=== PATIENT | male | born 1985 | race Caucasian/White ===

== ENCOUNTER 2020-07-26 09:13 | Emergency (ER) | payer SELFPAY ==
[~2020-07-26] VITALS: Ht 182.9 cm; Wt 86.4 kg
[2020-07-26 09:15] VITALS: TEMP 97.4
[2020-07-26] MEDS ORDERED: SEIZURE MED (10:00)
[2020-07-26 13:50] VITALS: BP 151/99; PULSE 78
== END 2020-07-26 13:00 | disposition home or self-care (01) ==
LOC: COL.ER 09:13
DX: R07.89 Other chest pain (principal); G40.909 Epilepsy, unspecified, not intractable, without status epilepticus; F17.210 Nicotine dependence, cigarettes, uncomplicated; Z88.5 Allergy status to narcotic agent

== ENCOUNTER 2020-08-11 13:32 | Emergency (ER) | payer SELFPAY ==
[~2020-08-11] VITALS: Ht 185.4 cm; Wt 86.4 kg
[~2020-08-11 13:32] MED LIST: SEIZURE MED
[2020-08-11 13:43] VITALS: TEMP 98.5
[2020-08-11 14:23] LABS: BASO # 0.1 (0.0-0.2); BASO % 0.6 % (0.0-2.0); EOS % 0.3 % (0-4.0); GRAN # 6.2 (1.4-6.5); GRAN % 66.4 % (42.2-75.2); HEMATOCRIT 42.9 % (42.0-52.0); HEMOGLOBIN 14.1 g/dl (13.5-18.0); LYMPH # 2.2 (1.2-3.4); LYMPH % 23.2 % (20.0-51.0); MEAN CELL VOLUME 88 fl (80.0-100.0); MEAN CORPUSCULAR HEMOGLOBIN 29 pg (27.0-31.0); MEAN CORPUSCULAR HGB CONC 33 g/dl (33.0-37.0); MEAN PLATELET VOLUME 8.8 fl (7.4-10.4); MONO # 0.9 (0.1-0.6); MONO % 9.3 % (1.7-9.3); PLATELET COUNT 281 K/mm3 (130-400); RED BLOOD COUNT 4.86 M/mm3 (4.20-5.60); REDCELL DISTRIBUTION WIDTH-CV 12.1 % (11.5-14.5)
[2020-08-11 14:33] LABS: ALANINE AMINOTRANSFERASE 26 U/L (4-49); ALBUMIN 4.4 gm/dL (3.5-5.0); ALKALINE PHOSPHATASE 87 U/L (50-136); ANION GAP 9 mmol/L (7-16); AST,SGOT 48 U/L (15-37); BILIRUBIN,TOTAL 0.5 mg/dL (0.0-1.0); BLOOD UREA NITROGEN 8 mg/dL (9-20); CALCIUM 9.3 mg/dL (8.4-10.2); CARBON DIOXIDE 26 mmol/L (22-30); CHLORIDE 106 mmol/L (98-107); CREATININE, serum 0.89 (0.66-1.25); GLUCOSE 95 mg/dL (74-106); LIPASE 51 U/L (23-300); POTASSIUM 3.7 mmol/L (3.4-5.0); SODIUM 141 mmol/L (137-145); TOTAL PROTEIN 7.1 gm/dL (6.4-8.2)
[2020-08-11 14:47] LABS: ALCOHOL(ethanol),MEDICAL < 10 mg/dL; TROPONIN-I < 0.012 ng/mL (0.000-0.035)
[2020-08-11 15:36] VITALS: BP 118/73; PULSE 68
== END 2020-08-11 15:38 | disposition home or self-care (01) ==
LOC: COL.ER 13:32
PROVIDERS: Emergency Medicine
DX: G40.909 Epilepsy, unspecified, not intractable, without status epilepticus (principal); F17.200 Nicotine dependence, unspecified, uncomplicated; Z88.6 Allergy status to analgesic agent
CPT/HCPCS: J1885

== ENCOUNTER 2020-08-16 22:22 | Emergency (ER) | payer SELFPAY ==
[~2020-08-16] VITALS: Ht 185.4 cm; Wt 86.4 kg
[2020-08-16 22:36] VITALS: TEMP 98.2
[2020-08-16 23:40] LABS: COLLECTION METHOD CLEAN CATCH
[2020-08-16 23:51] LABS: MUCOUS Present /lpf; PH 5 (5-8); SQUAMOUS EPITHELIAL 0-2 /hpf; URINE APPEARANCE Clear; URINE BACTERIA None Seen /hpf; URINE BILIRUBIN Negative (NEGATIVE); URINE BLOOD Negative (NEGATIVE); URINE COLOR Yellow; URINE GLUCOSE Negative (NEGATIVE); URINE KETONE Negative (NEGATIVE); URINE LEUKOCYTE ESTERASE Negative (NEGATIVE); URINE NITRATE Negative (NEGATIVE); URINE PROTEIN(semi-quant) Negative (NEGATIVE); URINE RBC 0-2 /hpf; URINE UROBILINOGEN Negative (NEGATIVE)
[2020-08-16 23:57] LABS: TRICYCLIC ANTIDEPRESS URINE NEGATIVE
[2020-08-16 23:58] LABS: BASO # 0.1 (0.0-0.2); BASO % 0.5 % (0.0-2.0); EOS # 0.1 (0.0-0.7); EOS % 0.8 % (0-4.0); GRAN # 6.9 (1.4-6.5); GRAN % 62.6 % (42.2-75.2); HEMATOCRIT 45.5 % (42.0-52.0); HEMOGLOBIN 14.7 g/dl (13.5-18.0); LYMPH # 3.1 (1.2-3.4); LYMPH % 28.1 % (20.0-51.0); MEAN CELL VOLUME 90 fl (80.0-100.0); MEAN CORPUSCULAR HEMOGLOBIN 29 pg (27.0-31.0); MEAN CORPUSCULAR HGB CONC 32 g/dl (33.0-37.0); MEAN PLATELET VOLUME 9.2 fl (7.4-10.4); MONO # 0.9 (0.1-0.6); MONO % 7.8 % (1.7-9.3); PLATELET COUNT 309 K/mm3 (130-400); RED BLOOD COUNT 5.06 M/mm3 (4.20-5.60); REDCELL DISTRIBUTION WIDTH-CV 12.3 % (11.5-14.5)
[2020-08-17 00:09] LABS: ALANINE AMINOTRANSFERASE 22 U/L (4-49); ALBUMIN 4.4 gm/dL (3.5-5.0); ALKALINE PHOSPHATASE 88 U/L (50-136); ANION GAP 9 mmol/L (7-16); AST,SGOT 23 U/L (15-37); BILIRUBIN,TOTAL 0.3 mg/dL (0.0-1.0); BLOOD UREA NITROGEN 10 mg/dL (9-20); CALCIUM 9.5 mg/dL (8.4-10.2); CARBON DIOXIDE 27 mmol/L (22-30); CHLORIDE 107 mmol/L (98-107); CREATININE, serum 0.79 (0.66-1.25); GLUCOSE 97 mg/dL (74-106); POTASSIUM 3.6 mmol/L (3.4-5.0); SODIUM 142 mmol/L (137-145); TOTAL PROTEIN 7.5 gm/dL (6.4-8.2)
[2020-08-17 00:11] LABS: ACETAMINOPHEN < 10 ug/mL (10-30); ALCOHOL(ethanol),MEDICAL < 10 mg/dL; SALICYLATE < 1.0 mg/dL
[2020-08-17 00:38] LABS: TSH w REFLEX 0.678 uIU/mL (0.465-4.680)
[2020-08-17 02:05] VITALS: BP 128/84; PULSE 118
== END 2020-08-17 02:05 | disposition home or self-care (01) ==
LOC: COL.ER 22:22
PROVIDERS: Nurse Practitioner Primary Care
DX: R44.0 Auditory hallucinations (principal); R44.1 Visual hallucinations; G40.909 Epilepsy, unspecified, not intractable, without status epilepticus; Z88.6 Allergy status to analgesic agent

== ENCOUNTER 2021-01-08 11:47 | Emergency (ER) | payer SELFPAY ==
[2021-01-08 11:55] VITALS: BP 131/83; TEMP 97.7
[2021-01-08 13:01] LABS: COLLECTION METHOD CLEAN CATCH
[2021-01-08 13:15] LABS: BASO # 0.1 (0.0-0.2); BASO % 0.6 % (0.0-2.0); EOS # 0.1 (0.0-0.7); EOS % 0.5 % (0-4.0); GRAN # 6.2 (1.4-6.5); GRAN % 63.2 % (42.2-75.2); HEMATOCRIT 46.6 % (42.0-52.0); HEMOGLOBIN 15.3 g/dl (13.5-18.0); LYMPH # 2.7 (1.2-3.4); LYMPH % 27.4 % (20.0-51.0); MEAN CELL VOLUME 88 fl (80.0-100.0); MEAN CORPUSCULAR HEMOGLOBIN 29 pg (27.0-31.0); MEAN CORPUSCULAR HGB CONC 33 g/dl (33.0-37.0); MEAN PLATELET VOLUME 9.2 fl (7.4-10.4); MONO # 0.8 (0.1-0.6); MONO % 8.1 % (1.7-9.3); PLATELET COUNT 308 K/mm3 (130-400); RED BLOOD COUNT 5.27 M/mm3 (4.20-5.60); REDCELL DISTRIBUTION WIDTH-CV 12.6 % (11.5-14.5)
[2021-01-08 13:21] LABS: TRICYCLIC ANTIDEPRESS URINE NEGATIVE
[2021-01-08 13:26] LABS: ALANINE AMINOTRANSFERASE 36 U/L (4-49); ALBUMIN 4.7 gm/dL (3.5-5.0); ALCOHOL(ethanol),MEDICAL < 10 mg/dL; ALKALINE PHOSPHATASE 83 U/L (50-136); ANION GAP 9 mmol/L (7-16); AST,SGOT 33 U/L (15-37); BILIRUBIN,TOTAL 0.8 mg/dL (0.0-1.0); BLOOD UREA NITROGEN 17 mg/dL (9-20); CALCIUM 9.9 mg/dL (8.4-10.2); CARBON DIOXIDE 31 mmol/L (22-30); CHLORIDE 103 mmol/L (98-107); CREATININE, serum 0.88 (0.66-1.25); GLUCOSE 87 mg/dL (74-106); POTASSIUM 4.2 mmol/L (3.4-5.0); SODIUM 142 mmol/L (137-145); TOTAL PROTEIN 7.9 gm/dL (6.4-8.2)
[2021-01-08 13:54] LABS: AMORPHOUS CRYSTAL Present /uL; MUCOUS Present /lpf; PH 6 (5-8); SQUAMOUS EPITHELIAL None Seen /hpf; URINE APPEARANCE Cloudy; URINE BACTERIA None Seen /hpf; URINE BILIRUBIN Negative (NEGATIVE); URINE BLOOD Negative (NEGATIVE); URINE CALCIUM OXALATE CRYSTAL Present /hpf; URINE COLOR Amber; URINE GLUCOSE Negative (NEGATIVE); URINE KETONE 1+ (NEGATIVE); URINE LEUKOCYTE ESTERASE Negative (NEGATIVE); URINE NITRATE Negative (NEGATIVE); URINE PROTEIN(semi-quant) 1+ (NEGATIVE); URINE UROBILINOGEN >=4.0 mg/dL (NEGATIVE)
[2021-01-08 14:23] VITALS: PULSE 82
== END 2021-01-08 14:23 | disposition home or self-care (01) ==
LOC: COL.ER 11:47
PROVIDERS: Nurse Practitioner Primary Care
DX: G40.909 Epilepsy, unspecified, not intractable, without status epilepticus (principal); Z91.14 Patient's other noncompliance with medication regimen; F17.210 Nicotine dependence, cigarettes, uncomplicated; Z88.6 Allergy status to analgesic agent

== ENCOUNTER → 2021-09-01 | Outpatient (CLI) | payer MEDICAID | LOC: COL.CARD 08-21 10:00 | DX: R56.9 Unspecified convulsions (principal) ==

== ENCOUNTER 2022-04-06 09:30 | Outpatient (RCR) | payer MEDICAID | END 2022-05-05 | disposition home or self-care (01) | LOC: WSST | DX: R41.3 Other amnesia (principal); R29.818 Other symptoms and signs involving the nervous system; R41.89 Other symptoms and signs involving cognitive functions and awareness ==

== ENCOUNTER 2024-04-22 21:25 | Emergency (ER) | payer SELFPAY ==
[~2024-04-22] VITALS: Ht 185.4 cm; Wt 97.7 kg
[2024-04-22 21:51] VITALS: TEMP 98.5
[2024-04-22] MEDS ORDERED: NS 1,000 ML IV ONE (22:15)
[2024-04-22] MEDS ORDERED: Ketorolac 30 MG/ML VIAL IV ONE (22:30)
[2024-04-22] MEDS ORDERED: NORCO 325 MG-7.1 TAB PO (23:05)
[2024-04-22] MEDS ORDERED: SILVADEN TOP (23:07)
[2024-04-22 23:15] VITALS: BP 124/85; PULSE 89
== END 2024-04-22 23:15 | disposition home or self-care (01) ==
LOC: COL.ER 21:25
DX: T21.26XA Burn of second degree of male genital region, initial encounter (principal); G40.909 Epilepsy, unspecified, not intractable, without status epilepticus; X10.0XXA Contact with hot drinks, initial encounter
CPT/HCPCS: J1885

== ENCOUNTER 2024-05-21 18:28 | Emergency (ER) | payer SELFPAY ==
[~2024-05-21] VITALS: Ht 185.4 cm; Wt 97.7 kg
[~2024-05-21 18:28] MED LIST changes: +NORCO 325 MG-7.1 TAB PO; +SILVADEN TOP
[2024-05-21] MEDS ORDERED: Ketorolac 15 MG/ML VIAL IM ONE (21:30)
[2024-05-21] MEDS ORDERED: NORCO 325 MG-51 TAB PO (22:22)
[2024-05-21 22:28] VITALS: BP 118/78; PULSE 82; TEMP 98
== END 2024-05-21 22:28 | disposition home or self-care (01) ==
LOC: COL.ER 18:28
DX: S82.831A Other fracture of upper and lower end of right fibula, initial encounter for closed fracture (principal); W01.0XXA Fall on same level from slipping, tripping and stumbling without subsequent striking against object, initial encounter; X50.1XXA Overexertion from prolonged static or awkward postures, initial encounter; Y93.01 Activity, walking, marching and hiking; Y92.009 Unspecified place in unspecified non-institutional (private) residence as the place of occurrence of the external cause
CPT/HCPCS: J1885